=== PATIENT | female | born 1955 | race Native Hawaiian/Other Pacific Islander ===

== ENCOUNTER 2017-11-10 15:18 | Outpatient (CLI) | payer OTHER ==
[~2017-11-10 15:18] MED LIST: ACET5TAB36 PO; ACYCLOVIR800 MG OR; ALBUTEROL0.083 % IN; ALPR0.5T24; ANTIVERT25 MG; CARV12.5; CEFTIN250 MG OR; COUMADIN5 MG; CRESTOR20 MG PO; DIGO0.2549; DILTCAP36; FLUT0.05 NAS; FURO40TA93; GABA300C2 PO; JANUMET1 TAB PO; LEVEMIR; NIASPAN1000 ER; PRED10TA27 PO; SERT50TA; SINGULAIR10 MG PO; XARELTO20 MG OR
== END 2017-11-10 20:54 | disposition home or self-care (01) ==
LOC: RAD 15:18
DX: M25.561 Pain in right knee (principal); M25.562 Pain in left knee

== ENCOUNTER 2020-03-24 10:33 | Emergency (ER) | payer OTHER ==
[~2020-03-24] VITALS: Ht 160 cm; Wt 95.7 kg
[2020-03-24 11:30] LABS: PLATELET COUNT 166 K/uL (152-353)
[2020-03-24 12:10] LABS: POTASSIUM 5.2 mmol/L (3.6-5.2); SODIUM 140 mmol/L (136-145)
[2020-03-24 19:00] VITALS: BP 155/95; TEMP 97.8
== END 2020-03-24 19:00 | disposition home or self-care (01) ==
LOC: ED 10:33
PROVIDERS: Family Medicine
DX: I20.8 Other forms of angina pectoris (principal); I51.3 Intracardiac thrombosis, not elsewhere classified; E11.65 Type 2 diabetes mellitus with hyperglycemia; Z79.4 Long term (current) use of insulin; Z79.84 Long term (current) use of oral hypoglycemic drugs
CPT/HCPCS: 36415; 80053; 81000; 82550; 82962; 84484; 85027; 85379; 93005; 96374; 99284; J1815; Q9963

== ENCOUNTER 2020-05-11 09:26 | Outpatient (CLI) | payer OTHER ==
[2020-05-11 10:03] LABS: PLATELET COUNT 225 K/uL (152-353); POTASSIUM 3.2 mmol/L (3.6-5.2)
== END 2020-05-11 20:06 | disposition home or self-care (01) ==
LOC: LAB 09:26
PROVIDERS: ATTEND Nurse Practitioner Family
DX: R11.2 Nausea with vomiting, unspecified (principal); E11.65 Type 2 diabetes mellitus with hyperglycemia
CPT/HCPCS: 80053; 81002; 83735; 84100; 85027

== ENCOUNTER 2020-07-07 15:23 | Outpatient (CLI) | payer OTHER | END 2020-07-07 20:56 | disposition home or self-care (01) | LOC: MAMMO 15:23 | PROVIDERS: ATTEND Nurse Practitioner Family | DX: Z12.31 Encounter for screening mammogram for malignant neoplasm of breast (principal) ==

== ENCOUNTER 2020-10-24 15:50 | Outpatient (CLI) | payer OTHER | END 2020-10-24 22:43 | disposition home or self-care (01) | LOC: US 15:50 | PROVIDERS: ATTEND Nurse Practitioner Family | DX: R10.11 Right upper quadrant pain (principal) ==

== ENCOUNTER 2021-08-28 21:57 | Observation (INO) | payer OTHER ==
[~2021-08-28] VITALS: Ht 160 cm; Wt 88.2 kg
[2021-08-28 21:57] VITALS: BP 162/71; TEMP 98.6
[2021-08-28 22:30] VITALS: BP 163/81
[2021-08-28 22:30] LABS: PLATELET COUNT 223 K/uL (152-353)
[2021-08-28 22:48] LABS: POTASSIUM 4.1 mmol/L (3.6-5.2)
[2021-08-28 23:00] VITALS: BP 158/84
[2021-08-28 23:30] VITALS: BP 147/78
[2021-08-29] VITALS: BP 132/43
[2021-08-29 00:30] VITALS: BP 111/65; TEMP 98.6
[2021-08-29 01:12] VITALS: BP 157/96; TEMP 98; Ht 160 cm; Wt 88.2 kg
[2021-08-29 03:18] LABS: POTASSIUM 3.9 mmol/L (3.6-5.2)
[2021-08-29 04:00] VITALS: BP 112/62; TEMP 98.3
[2021-08-29 06:55] LABS: PLATELET COUNT 165 K/uL (152-353)
[2021-08-29 07:05] LABS: POTASSIUM 3.6 mmol/L (3.6-5.2)
[2021-08-29 08:00] VITALS: BP 135/72; TEMP 98.3
[2021-08-29 10:40] LABS: POTASSIUM 3.9 mmol/L (3.6-5.2)
[2021-08-29 12:00] VITALS: BP 134/72; TEMP 98.4
== END 2021-08-29 12:22 | disposition home or self-care (01) ==
LOC: ED 21:57 → MED/SURG 23:35
PROVIDERS: ADMIT Emergency Medicine; ATTEND Internal Medicine
DX: R07.89 Other chest pain (principal); I48.91 Unspecified atrial fibrillation; E11.65 Type 2 diabetes mellitus with hyperglycemia; E78.49 Other hyperlipidemia; Z86.73 Personal history of transient ischemic attack (TIA), and cerebral infarction without residual deficits; K21.9 Gastro-esophageal reflux disease without esophagitis; G40.802 Other epilepsy, not intractable, without status epilepticus; M15.8 Other polyosteoarthritis; F41.8 Other specified anxiety disorders; J44.9 Chronic obstructive pulmonary disease, unspecified; I11.0 Hypertensive heart disease with heart failure; I50.9 Heart failure, unspecified; Z79.4 Long term (current) use of insulin; Z79.01 Long term (current) use of anticoagulants; E11.42 Type 2 diabetes mellitus with diabetic polyneuropathy
CPT/HCPCS: 36415; 80048; 80053; 81000; 82947; 82948; 83036; 83735; 84484; 85027; 85610; 87635; 93005; 96360; 96361; 96372; 96374; 96375; 99220; 99285; G0378; J1650; J1815; J2060; J2270; J2405; J3490; U0003

== ENCOUNTER 2021-11-02 12:17 | Emergency (ER) | payer OTHER ==
[~2021-11-02] VITALS: Ht 160 cm; Wt 88.0 kg
[2021-11-02 13:22] LABS: PLATELET COUNT 161 K/uL (152-353)
[2021-11-02 13:26] LABS: POTASSIUM 4.8 mmol/L (3.6-5.2)
[2021-11-02 15:00] LABS: PARTIAL THROMBOPLASTIN TIME 27.4 SECONDS (24.5-33.6)
[2021-11-02] MEDS ORDERED: MECLIZINE 2525 MG PO (21:36)
[2021-11-02 22:55] VITALS: BP 136/90; TEMP 97.7
== END 2021-11-02 22:55 | disposition home or self-care (01) ==
LOC: ED 12:17
PROVIDERS: Emergency Medicine
DX: R42 Dizziness and giddiness (principal); I48.91 Unspecified atrial fibrillation; W18.39XA Other fall on same level, initial encounter; Y92.89 Other specified places as the place of occurrence of the external cause
CPT/HCPCS: 36415; 80053; 81002; 84443; 84484; 85027; 85379; 85610; 85730; 93005; 96360; 99284; Q9963

== ENCOUNTER 2022-03-28 15:50 | Emergency (ER) | payer OTHER ==
[~2022-03-28] VITALS: Ht 160 cm; Wt 84.8 kg
[2022-03-28 15:50] VITALS: TEMP 98
[~2022-03-28 15:50] MED LIST changes: +MECLIZINE 2525 MG PO
[2022-03-28 16:39] LABS: POTASSIUM 4.1 mmol/L (3.6-5.2)
[2022-03-28 16:44] LABS: PLATELET COUNT 374 K/uL (152-353)
[2022-03-28 17:04] LABS: PARTIAL THROMBOPLASTIN TIME 26.3 SECONDS (24.5-33.6)
[2022-03-28 22:15] VITALS: BP 118/56
== END 2022-03-28 22:15 | disposition short-term general hospital (02) ==
LOC: ED 15:50
PROVIDERS: Emergency Medicine
DX: I21.4 Non-ST elevation (NSTEMI) myocardial infarction (principal); I48.20 Chronic atrial fibrillation, unspecified; I10 Essential (primary) hypertension; Z11.52 Encounter for screening for COVID-19; R20.0 Anesthesia of skin
CPT/HCPCS: 36415; 80053; 81002; 84484; 85027; 85379; 85610; 85730; 87635; 93005; 96365; 96366; 96375; 99284; J1644; J2270; J2405; J3490; Q9963; U0003

== ENCOUNTER 2022-04-03 12:14 | Emergency (ER) | payer OTHER ==
[~2022-04-03] VITALS: Ht 160 cm; Wt 80.7 kg
[2022-04-03 12:20] VITALS: BP 141/86; TEMP 98.2
[2022-04-03 12:43] LABS: PLATELET COUNT 470 K/uL (152-353)
[2022-04-03 14:13] LABS: POTASSIUM 5.5 mmol/L (3.6-5.2)
== END 2022-04-03 15:10 | disposition short-term general hospital (02) ==
LOC: ED 12:14
PROVIDERS: Emergency Medicine
DX: I21.4 Non-ST elevation (NSTEMI) myocardial infarction (principal); I10 Essential (primary) hypertension
CPT/HCPCS: 80053; 84443; 84484; 85027; 85610; 85730; 93005; 96374; 99284; J1644

== ENCOUNTER → 2022-04-18 | Emergency (ER) | payer OTHER ==
[~2022-04-18] VITALS: Ht 160 cm; Wt 80.7 kg
[2022-04-18 02:55] LABS: PLATELET COUNT 389 K/uL (152-353)
[2022-04-18 02:56] LABS: POTASSIUM 4.3 mmol/L (3.6-5.2)
[2022-04-18 03:00] LABS: PARTIAL THROMBOPLASTIN TIME 25.7 SECONDS (24.5-33.6)
== END ==
LOC: ED 00:52
PROVIDERS: Emergency Medicine Emergency Medical Services
PROC: 0BH17EZ Insertion of Endotracheal Airway into Trachea, Via Natural or Artificial Opening (ICD-10-PCS; principal; 2022-04-18)
PROC: 5A1935Z Respiratory Ventilation, Less than 24 Consecutive Hours (ICD-10-PCS; 2022-04-18)
PROC: 0T9B70Z Drainage of Bladder with Drainage Device, Via Natural or Artificial Opening (ICD-10-PCS; 2022-04-18)
PROC: 0D9670Z Drainage of Stomach with Drainage Device, Via Natural or Artificial Opening (ICD-10-PCS; 2022-04-18)
DX: I10 Essential (primary) hypertension (principal); E11.9 Type 2 diabetes mellitus without complications; Z79.4 Long term (current) use of insulin; Z51.81 Encounter for therapeutic drug level monitoring; I48.91 Unspecified atrial fibrillation; Z86.73 Personal history of transient ischemic attack (TIA), and cerebral infarction without residual deficits; Z20.822 Contact with and (suspected) exposure to COVID-19; R06.03 Acute respiratory distress
CPT/HCPCS: 31500; 36415; 36600; 43754; 51702; 80053; 80162; 80307; 81002; 82550; 82805; 84484; 85027; 85379; 85610; 85730; 87635; 93005; 94002; 94003; 96361; 96365; 96366; 96375; 96376; 99285; J0330; J2250; J3360; J3490; U0003

== ENCOUNTER 2022-06-04 18:41 | Emergency (ER) | payer OTHER ==
[~2022-06-04] VITALS: Ht 160 cm; Wt 68.0 kg
[2022-06-04 19:33] LABS: PLATELET COUNT 368 K/uL (152-353)
[2022-06-04 19:46] LABS: POTASSIUM 3.8 mmol/L (3.6-5.2)
[2022-06-04 20:51] LABS: PARTIAL THROMBOPLASTIN TIME 24.1 SECONDS (24.5-33.6)
[2022-06-04 21:10] VITALS: BP 124/82; TEMP 97.3
== END 2022-06-04 21:10 | disposition home or self-care (01) ==
LOC: ED 18:41
PROVIDERS: Emergency Medicine
DX: L89.319 Pressure ulcer of right buttock, unspecified stage (principal); Z86.73 Personal history of transient ischemic attack (TIA), and cerebral infarction without residual deficits; I25.2 Old myocardial infarction; E11.65 Type 2 diabetes mellitus with hyperglycemia; Z79.4 Long term (current) use of insulin; I48.20 Chronic atrial fibrillation, unspecified; R60.0 Localized edema
CPT/HCPCS: 36415; 80053; 82550; 83605; 83880; 84484; 85027; 85610; 85730; 93005; 99283

== ENCOUNTER 2022-06-11 13:31 | Inpatient (IN) | payer OTHER ==
[~2022-06-11] VITALS: Ht 160 cm; Wt 75.5 kg
[2022-06-11 13:31] VITALS: BP 154/78; TEMP 98.2
[~2022-06-11 13:31] MED LIST changes: -XARELTO20 MG OR; +XARELTO20 MG PO
[2022-06-11 15:00] VITALS: BP 140/74
[2022-06-11 16:28] LABS: PLATELET COUNT 281 K/uL (152-353)
[2022-06-11 16:37] LABS: POTASSIUM 4.1 mmol/L (3.6-5.2)
[2022-06-11 17:53] VITALS: BP 106/85; TEMP 98.4; Ht 160 cm; Wt 75.5 kg
[2022-06-11 20:00] VITALS: BP 146/78; TEMP 99.6
[2022-06-11 23:31] VITALS: BP 148/61; TEMP 99.4
[2022-06-12 03:43] VITALS: BP 136/72; TEMP 98.7
[2022-06-12 08:00] VITALS: BP 139/69; TEMP 97.1
[2022-06-12] MEDS ORDERED: LIPITOR20 MG PEG (09:24)
[2022-06-12] MEDS ORDERED: BUSPIRONE10 MG PO (09:25)
[2022-06-12] MEDS ORDERED: CARV3.12 PO (09:26)
[2022-06-12] MEDS ORDERED: DIGO0.1230 PO (09:27)
[2022-06-12] MEDS ORDERED: VITAMIN D50000 UNIT PO (09:28)
[2022-06-12] MEDS ORDERED: ASPIRIN 8181 MG PO (09:29)
[2022-06-12] MEDS ORDERED: LEVE500T5 PO (09:29)
[2022-06-12] MEDS ORDERED: MOUNJARO SC (09:30)
[2022-06-12] MEDS ORDERED: [UNRECOGNIZED DRUG - REMARK] (10:15)
[2022-06-12 12:00] VITALS: BP 143/77; TEMP 97.2
[2022-06-12 16:00] VITALS: BP 143/88; TEMP 96.8
[2022-06-12 20:00] VITALS: BP 160/72; TEMP 98.6
[2022-06-13] VITALS: BP 139/69; TEMP 97.2
[2022-06-13 04:00] VITALS: BP 139/75; TEMP 97.7
[2022-06-13 07:48] VITALS: BP 134/52; TEMP 99.1
[2022-06-13 07:53] LABS: PLATELET COUNT 281 K/uL (152-353)
[2022-06-13 07:58] LABS: POTASSIUM 4.1 mmol/L (3.6-5.2)
[2022-06-13 12:00] VITALS: BP 118/52; TEMP 97.8
[2022-06-13 16:00] VITALS: BP 137/64; TEMP 98.3
[2022-06-13 20:00] VITALS: BP 113/73; TEMP 98.9
[2022-06-14] VITALS: BP 127/59; TEMP 98.7
[2022-06-14 04:00] VITALS: BP 140/69; TEMP 98.6
[2022-06-14 08:19] VITALS: BP 118/66; TEMP 97.2
[2022-06-14 12:00] VITALS: BP 138/52; TEMP 97.1
[2022-06-14] MEDS ORDERED: LEVOFLOXACIN500 MG PO (13:21)
[2022-06-14] MEDS ORDERED: INSU-1996 SC (13:38)
[2022-06-14 16:00] VITALS: BP 117/72; TEMP 97.3
== END 2022-06-14 20:25 | disposition home health service (06) | DRG 177 ==
LOC: ED 13:31 → MED/SURG 15:15
PROVIDERS: Emergency Medicine; ADMIT Internal Medicine; ATTEND Internal Medicine
DX: J15.6 Pneumonia due to other Gram-negative bacteria (principal); L89.313 Pressure ulcer of right buttock, stage 3; G40.802 Other epilepsy, not intractable, without status epilepticus; R47.01 Aphasia; I69.354 Hemiplegia and hemiparesis following cerebral infarction affecting left non-dominant side; I48.20 Chronic atrial fibrillation, unspecified; J96.10 Chronic respiratory failure, unspecified whether with hypoxia or hypercapnia; L89.152 Pressure ulcer of sacral region, stage 2; I48.91 Unspecified atrial fibrillation; E78.49 Other hyperlipidemia; I11.0 Hypertensive heart disease with heart failure; I50.9 Heart failure, unspecified; K21.9 Gastro-esophageal reflux disease without esophagitis; M15.8 Other polyosteoarthritis; F41.8 Other specified anxiety disorders; R13.12 Dysphagia, oropharyngeal phase; E11.65 Type 2 diabetes mellitus with hyperglycemia; L89.326 Pressure-induced deep tissue damage of left buttock; L08.89 Other specified local infections of the skin and subcutaneous tissue; B96.20 Unspecified Escherichia coli [E. coli] as the cause of diseases classified elsewhere; B96.4 Proteus (mirabilis) (morganii) as the cause of diseases classified elsewhere; Z93.0 Tracheostomy status
CPT/HCPCS: 80048; 80053; 81002; 85027; 87070; 87077; 87186; 87205; 94664; 94760; 99283; C1726; J1956; J3370

== ENCOUNTER 2022-07-11 19:50 | Inpatient (IN) | payer OTHER ==
[2022-07-11] VITALS (8 sets, daily range): BP systolic 104–131; BP diastolic 54–88; TEMP 97.7
[~2022-07-11] VITALS: Ht 160 cm; Wt 78.3 kg
[~2022-07-11 19:50] MED LIST changes: +ASPIRIN 8181 MG PO; +BUSPIRONE10 MG PO; +CARV3.12 PO; +DIGO0.1230 PO; +INSU-1996 SC; +LEVE500T5 PO; +LEVOFLOXACIN500 MG PO; +LIPITOR20 MG PEG; +MOUNJARO SC; +VITAMIN D50000 UNIT PO; +[UNRECOGNIZED DRUG - REMARK]
[2022-07-11 20:49] LABS: PLATELET COUNT 565 K/uL (152-353)
[2022-07-11 20:50] LABS: POTASSIUM 3.8 mmol/L (3.6-5.2)
[2022-07-11 20:53] LABS: PARTIAL THROMBOPLASTIN TIME 31.6 SECONDS (23.9-36.7)
[2022-07-12] VITALS (7 sets, daily range): BP systolic 106–129; BP diastolic 42–81; TEMP 97.5–99.8; Ht 160 cm; Wt 78.3 kg
[2022-07-12 04:25] LABS: PLATELET COUNT 519 K/uL (152-353)
[2022-07-12] MEDS ORDERED: LORA1TAB17 PO (10:36)
[2022-07-12] MEDS ORDERED: DIAZEPAM10 MG PO (10:36)
[2022-07-12] MEDS ORDERED: MORPHINE 100MG/5ML PO (10:38)
[2022-07-13 03:40] VITALS: BP 127/52; TEMP 99.1
[2022-07-13 08:30] VITALS: BP 135/61; TEMP 98.9
[2022-07-13 12:00] VITALS: BP 144/53; TEMP 99.4
[2022-07-13 16:00] VITALS: BP 147/60; TEMP 98.7
[2022-07-13 20:00] VITALS: BP 148/52; TEMP 99
[2022-07-14] VITALS: BP 139/88; TEMP 98.9
[2022-07-14 04:00] VITALS: BP 156/52; TEMP 99.1
[2022-07-14 05:05] LABS: PLATELET COUNT 391 K/uL (152-353)
[2022-07-14 05:40] LABS: POTASSIUM 3.1 mmol/L (3.6-5.2); SODIUM 142 mmol/L (136-145)
[2022-07-14 08:00] VITALS: BP 145/66; TEMP 97.6
[2022-07-14 12:00] VITALS: BP 132/63; TEMP 98
[2022-07-14 16:00] VITALS: BP 138/70; TEMP 98.5
[2022-07-14 20:00] VITALS: BP 141/64; TEMP 98.9
[2022-07-15] VITALS: BP 150/68; TEMP 100.3
[2022-07-15 03:58] VITALS: BP 140/58; TEMP 99.3
[2022-07-15 05:10] LABS: PLATELET COUNT 329 K/uL (152-353)
[2022-07-15 05:31] LABS: POTASSIUM 3.6 mmol/L (3.6-5.2)
[2022-07-15 08:00] VITALS: BP 140/58; TEMP 98
[2022-07-15] MEDS ORDERED: INSU-1996 SC (09:34)
[2022-07-15] MEDS ORDERED: LEVE500T5 PO (09:34)
[2022-07-15] MEDS ORDERED: LEVOFLOXACIN500 MG PO (09:35)
[2022-07-15 12:00] VITALS: BP 121/70; TEMP 98
== END 2022-07-15 15:33 | disposition home or self-care (01) | DRG 202 ==
LOC: ED 19:50 → MED/SURG 22:38
PROVIDERS: ADMIT Emergency Medicine; ATTEND Internal Medicine
DX: J40 Bronchitis, not specified as acute or chronic (principal); I48.20 Chronic atrial fibrillation, unspecified; I69.351 Hemiplegia and hemiparesis following cerebral infarction affecting right dominant side; J96.10 Chronic respiratory failure, unspecified whether with hypoxia or hypercapnia; E86.0 Dehydration; Z93.0 Tracheostomy status; L89.152 Pressure ulcer of sacral region, stage 2; L89.312 Pressure ulcer of right buttock, stage 2; L08.89 Other specified local infections of the skin and subcutaneous tissue; L98.8 Other specified disorders of the skin and subcutaneous tissue; E11.40 Type 2 diabetes mellitus with diabetic neuropathy, unspecified; D72.828 Other elevated white blood cell count; I69.398 Other sequelae of cerebral infarction; R56.9 Unspecified convulsions; E11.65 Type 2 diabetes mellitus with hyperglycemia; R82.998 Other abnormal findings in urine
CPT/HCPCS: 36415; 80053; 81000; 82948; 83735; 84100; 84484; 85027; 85610; 85730; 93005; 94760; 96360; 96361; 96365; 96367; 96372; 96375; 99283; J1815; J3475; J3480

== ENCOUNTER 2022-07-22 21:50 | Emergency (ER) | payer OTHER ==
[~2022-07-22] VITALS: Ht 160 cm; Wt 90.7 kg
[~2022-07-22 21:50] MED LIST changes: +DIAZEPAM10 MG PO; +LORA1TAB17 PO; +MORPHINE 100MG/5ML PO
[2022-07-22 22:57] LABS: PLATELET COUNT 468 K/uL (152-353)
[2022-07-22 23:41] LABS: POTASSIUM 3.8 mmol/L (3.6-5.2)
[2022-07-23 08:20] VITALS: BP 103/51; TEMP 97.8
== END 2022-07-23 08:25 | disposition still patient (30) ==
LOC: ED 21:50
PROVIDERS: Emergency Medicine Emergency Medical Services
DX: R00.2 Palpitations (principal); N39.0 Urinary tract infection, site not specified; I48.91 Unspecified atrial fibrillation
CPT/HCPCS: 36415; 80053; 81000; 83735; 84484; 85027; 85610; 87077; 87088; 93005; 96361; 96365; 99284; J0696